=== PATIENT | female | born 1970 | race African-American/Black ===

== ENCOUNTER 2022-03-16 11:51 | Emergency (ER) | payer BC ==
[~2022-03-16] VITALS: Ht 170.2 cm; Wt 79.4 kg
--- NOTE | 2022-03-16 12:00 | NUR ---
Patient to ER bed 04 to gown for evaluation. Side rails up.
[2022-03-16 12:10] VITALS: BP_SYST 133
--- NOTE | 2022-03-16 12:10 | NUR ---
Dr Becerra evaluating patient at bedside
[2022-03-16] MEDS ORDERED: KETOROLAC TROMETHAMINE 60 MG/2 ML VIAL IM ONE (12:15)
--- NOTE | 2022-03-16 12:19 | NUR ---
pt. in radiology
[2022-03-16] MEDS ORDERED: PANTOPRAZOLE SODIUM 40 MG TAB ONE (12:24)
--- NOTE | 2022-03-16 12:30 | NUR ---
Pt brought by self, A&Ox4, pt presents to ER with L foot pain and chestwall discomfort after trip and fall, denies KO, skin pink and warm, cap refill <3, VSS, will cont to monitor.
[2022-03-16] MEDS ORDERED: NAPR-690 PO (14:09)
[2022-03-16 14:30] VITALS: BP_SYST 147
--- NOTE | 2022-03-16 14:30 | NUR ---
Patient given written and verbal discharge instructions and verbalizes understanding. discussed with patient the results and treatment provided. Patient in stable condition. ID arm band removed. Rx of Naproxen given. Patient educated on pain management and to follow up with PMD. Pain Scale 6. Opportunity for questions provided and answered. Medication side effect fact sheet provided.
== END 2022-03-16 14:30 | disposition home or self-care (01) ==
LOC: SED 11:51
DX: S90.32XA Contusion of left foot, initial encounter (principal); S90.31XA Contusion of right foot, initial encounter; S20.219A Contusion of unspecified front wall of thorax, initial encounter; F17.200 Nicotine dependence, unspecified, uncomplicated; Z71.6 Tobacco abuse counseling; W18.30XA Fall on same level, unspecified, initial encounter; Y93.89 Activity, other specified; Y92.89 Other specified places as the place of occurrence of the external cause; Y99.8 Other external cause status
CPT/HCPCS: 71045; 73630; 96372; 99284; J1885